=== PATIENT | female | born 1950 | race Hispanic/Latino ===

== ENCOUNTER 2017-07-25 09:04 | Observation (INO) | payer MEDICARE ==
--- NOTE | 2017-07-24 16:06 | Diagnostic Imaging Report ---
PROCEDURE: Frontal and lateral views of the chest. COMPARISON: None. INDICATIONS: PRE-OPERATIVE CHEST X-RAY FOR KNEE SURGERY FINDINGS: Lines/tubes: None. Lungs: Lungs are mildly hyperinflated. Mild central pulmonary venous congestion. Pleura: There is no pleural effusion or pneumothorax. Heart and mediastinum: The heart and the mediastinum are normal. Atherosclerotic calcifications of the aorta. Bones: No acute bony abnormality. Severe deformities of bilateral glenohumeral joints. Moderate severe degenerative changes in the right acromioclavicular joint. Chronic widening of the left acromioclavicular joint. IMPRESSION: 1. Mild central pulmonary venous congestion. Otherwise unremarkable chest. 2. Severe degenerative changes in bilateral glenohumeral joints. Dictated by: Devendra Zuleta M.D. on 07/24/2017 at 16:06 Electronically approved by: Devendra Zuleta M.D. on 07/24/2017 at 16:06
[~2017-07-25] VITALS: Ht 160 cm; Wt 58.5 kg
[~2017-07-25 09:04] MED LIST: ALEVE220 M1 PO; BACITRACIN 50,000 UNIT VIAL ONE; CEFAZOLIN SOD 2 GM/D5W 50ML 50 ML IV ONE; CELECOXIB 200 MG CAP ONE; DEXAMETHASONE SOD PHOS 10 MG/1 ML VIAL ONE; GABAPENTIN 300 MG CAP ONE; MUPIROCIN 2% OINT 22 GM TUBE ONE; RA MED; TRANEXAMIC ACID 1,000 MG/10 ML ML ONE; TYLENOL PO; [UNRECOGNIZED DRUG - OTHER]
--- OUTSIDE RECORDS SUMMARY | 2017-07-25 09:07 | XMS REPORT ---
[facility] Address Unknown Phone Unavailable Care Team Providers Care Health Care Analyst Name Role Phone NORMA POPE Unavailable Unavailable Problems This patient has no known problems. Allergies, Adverse Reactions, Alerts This patient has no known allergies or adverse reactions. Medications This patient has no known medications. Results Test Description Test Time Test Comments Text Results Atomic Results Result Comments CHEST 2 VIEWS [place] [address] Patient Name: LISA LAMAR MR #: [id number] : 1950 Age/Sex: 66/F Req # : [id number] Adm Physician: Ordered by: CRISELDA NAPOLES MD Report #: [id number] Location: OR Room/Bed: Procedure: [id number] DX/CHEST 2 VIEWS Exam Date: Exam Time: REPORT STATUS: Signed PROCEDURE: Frontal and lateral views of the chest. COMPARISON: None. INDICATIONS: PRE-OPERATIVE CHEST X-RAY FOR KNEE SURGERY FINDINGS: Lines/tubes: None. Lungs: Lungs are mildly hyperinflated. Mild central pulmonary venous congestion. Pleura: There is no pleural effusion or pneumothorax. Heart and mediastinum: The heart and the mediastinum are normal. Atherosclerotic calcifications of the aorta. Bones: No acute bony abnormality. Severe deformities of bilateral glenohumeral joints. Moderate severe degenerative changes in the right acromioclavicular joint. Chronic widening of the left acromioclavicular joint. IMPRESSION: 1. Mild central pulmonary venous congestion. Otherwise unremarkable chest. 2. Severe degenerative changes in bilateral glenohumeral joints. Dictated by: Ludy Zuleta M.D. on 07/24/2017 at 16:06 Electronically approved by: Ludy Zuleta M.D. on 07/24/2017 at 16:06 Dictated By: LUDY ZULETA MD [id number] COPY TO: CRISELDA NAPOLES MD
[2017-07-25] MEDS ORDERED: SODIUM CHLORIDE 0.9% 1000ML 1,000 ML IV SCH (10:47)
[2017-07-25] MEDS ORDERED: HYDROCODONE/APAP 7.5MG-325MG 1 EA TAB PO PRN (11:00)
[2017-07-25] MEDS ORDERED: HYDROCODONE/APAP 5MG-325MG TAB PO PRN (11:00)
[2017-07-25] MEDS ORDERED: PROMETHAZINE HCL (IM) 25 MG/ML VIAL INJ PRN (11:00)
[2017-07-25] MEDS ORDERED: KETOROLAC TROMETHAMINE 30 MG/ML VIAL IV PRN (11:00)
[2017-07-25] MEDS ORDERED: ZOLPIDEM TARTRATE 5 MG TAB PO PRN (11:00)
[2017-07-25] MEDS ORDERED: ONDANSETRON HCL INJ 2 MG/ML VIAL IV PRN (11:00)
[2017-07-25] MEDS ORDERED: DIPHENHYDRAMINE HCL INJ 50 MG/ML VIAL IM/IV PRN (11:00)
[2017-07-25] MEDS ORDERED: ACETAMINOPHEN 650 MG SUPP PR PRN (11:00)
[2017-07-25] MEDS ORDERED: DOCUSATE SODIUM 100 MG CAP PO PRN (11:00)
--- NOTE | 2017-07-25 11:27 | Operative Report ---
DATE OF PROCEDURE: July 25, 2017 EQUIPMENT CLEANER AND TESTER: Freddie Lawrence PA-C The patient was brought to the operating room for induction of anesthesia. Throughout this case, my PA's assistance was necessary for retraction of soft tissue and positioning of the extremity. This allows for efficient and technically successful execution of the operation and is considered medically necessary. PREOPERATIVE DIAGNOSIS: Severe right knee rheumatoid arthritis. POSTOPERATIVE DIAGNOSIS: Severe right knee rheumatoid arthritis. PROCEDURE: Right total knee arthroplasty with total synovectomy and bone grafting of subchondral cysts. INDICATIONS: The patient is a 66-year-old lady with severe erosive rheumatoid arthritis of her right knee. This has been untreated for years. She now has severe quadriceps atrophy and very limited function and mobility as a result of her right knee. The findings and options have been discussed. We plan on a right total knee arthroplasty. The risks and benefits were explained to the patient and her family. They state they understand and wish to proceed. DESCRIPTION OF PROCEDURE: The patient was brought to the operating room and placed under general anesthetic. She received a regional block, tranexamic acid and prophylactic antibiotics in the holding area. Her right lower extremity was prepped and draped in a sterile manner. A preoperative time out was performed. The extremity was exsanguinated and a proximal tourniquet was inflated to 300 mmHg. An anterior approach with a medial parapatellar arthrotomy was performed. A large inflammatory synovitis was noted. A total synovectomy was performed throughout the case. Initial attention was directed towards the suprapatellar pouch, medial and lateral gutters. Soft-tissue releases were performed to bring the knee up into flexion with the patella everted. Limited dissection was performed in the medial or lateral aspect as well as elevation of the patellar tendon. Noted erosive arthritis was encountered of the lateral tibial plateau and femoral condyle. There was really no remnant of any meniscal tissue. An extramedullary cutting guide was used to resect the proximal tibia. A [employer] Claudine II posterior stabilized knee system was used throughout the case. The tibial baseplate was a size #4. The central fin punch was impacted, and attention was directed towards the distal femur. An intramedullary cutting guide was used to resect the distal femur in 6 degrees of valgus and rotation referenced off of a combination of landmarks including [place] line, the epicondylar axis and the posterior condyles. The femoral component was also a size #4. The notch cut was made. Trial reduction was performed. An 11-mm posted implant provided optimal soft-tissue balancing in full extension and 90 degrees of flexion. The posterior compartment was cleared of all inflamed synovium as well. The patella was resurfaced with a 29-mm x 9-mm patellar button. The thickness was checked before and after and was right around 22 to 23 mm. Patellar tracking was concentric. The trial implants were all removed. Subchondral cysts in the distal femur and proximal tibia were carefully debrided and packed with autologous bone graft. I did not have enough autologous bone graft to pack every one of the cysts because the excised bone was also of poor quality and cystic. The knee was thoroughly irrigated with a shower-tip pulsatile lavage. A 100 mL premixed pericapsular injection was placed around the soft tissue. The components were cemented into place using a single mix of [place] cement preloaded with antibiotics. Care was taken to carefully remove all extravasated cement. The wound was extensively irrigated while the cement cured. The arthrotomy was then closed with interrupted #1 Ethibond. The knee was put through flexion and extension after each suture to ensure a secure closure. The skin was very carefully closed with subcuticular Vicryl and elizabeth. A sterile bandage was applied. The patient was extubated and transported to the recovery room in stable condition. Blood loss was minimal. All needle and sponge counts were correct. Job#: [id number]
[2017-07-25] MEDS ORDERED: ROPIVACAINE 246.25 MG, EPINEPHRINE HCL 1:1000 0.5 MG, CLONIDINE HCL 0.08 MG, KETOROLAC ... INJ ONE ×5 (11:30)
[2017-07-25] MEDS: ACETAMINOPHEN 1000 MG/100 ML IV SCH ×2 (12:00→18:33)
--- NOTE | 2017-07-25 12:04 | Diagnostic Imaging Report ---
PROCEDURE:KNEE RIGHT 1-2 VIEWS TECHNIQUE:Portable AP and crosstable lateral views right knee INDICATION:Postoperative evaluation COMPARISON:None. FINDINGS: See conclusion. CONCLUSION: 1. Total right knee arthroplasty intact and in anatomic alignment. 2. Expected regional postoperative changes including soft tissue swelling, joint gas and tissue elizabeth. 3. No acute abnormality. Dictated by: Arthur Ceja M.D. on 07/25/2017 at 12:04 Electronically approved by: Arthur Ceja M.D. on 07/25/2017 at 12:04
[2017-07-25] MEDS ORDERED: CEFAZOLIN SOD 1 GM/NS 50ML 50 ML IV SCH (14:00)
[2017-07-25 16:41] VITALS: BP 101/53
[2017-07-25] MEDS ORDERED: CELECOXIB 100 MG CAP PO SCH (17:00)
[2017-07-25] MEDS ORDERED: ONDANSETRON HCL INJ 2 MG/ML VIAL ONE (17:27)
[2017-07-25] MEDS ORDERED: PROPOFOL IV EMULSION 10 MG/ML 20 ML VIAL ONE (17:27)
[2017-07-25] MEDS ORDERED: LIDOCAINE HCL 2% LOCAL INJ 5 ML SDV VIAL INJ ONE (17:27)
[2017-07-25] MEDS ORDERED: DESFLURANE 240 ML BTL INH ONE (17:27)
[2017-07-25] MEDS ORDERED: EPHEDRINE SULFATE INJ 50 MG/10 ML SYR ONE (17:27)
[2017-07-25] MEDS ORDERED: DEXAMETHASONE SOD PHOS INJ 4 MG/ML VIAL ONE (17:27)
[2017-07-25 17:35] VITALS: BP 101/53
[2017-07-25] MEDS: CEFAZOLIN SOD 1 GM VIAL IV SCH (18:32)
[2017-07-25] MEDS: CELECOXIB 200 MG CAP PO SCH (18:32)
[2017-07-25] MEDS: ASPIRIN 325 MG TAB PO SCH (18:32)
[2017-07-25] MEDS ORDERED: LIDOCAINE 2% /EPINEPHRINE 20 ML SDV INJ ONE (18:36)
[2017-07-25] MEDS ORDERED: ROPIVACAINE 0.5% 5 MG/ML 30 ML SDV ONE (18:36)
[2017-07-25] MEDS ORDERED: FENTANYL CITRATE/PF 100MCG/2 ML INJ ONE (18:42)
[2017-07-25] MEDS ORDERED: MIDAZOLAM HCL 2 MG/2 ML VIAL ONE (18:42)
[2017-07-25 20:00] VITALS: BP 99/55
[2017-07-26] VITALS: BP 101/57
[2017-07-26] MEDS: ACETAMINOPHEN 1000 MG/100 ML IV SCH ×2 (02:20→06:00)
[2017-07-26] MEDS: CEFAZOLIN SOD 1 GM VIAL IV SCH ×2 (02:20→09:32)
[2017-07-26 04:00] VITALS: BP 97/55
[2017-07-26 06:55] LABS: HEMATOCRIT 26.8 % (34.2-44.1); HEMOGLOBIN 8.8 g/dL (12.0-16.0)
[2017-07-26 08:21] VITALS: BP 112/57
[2017-07-26] MEDS ORDERED: ASPIRIN325 MG PO (08:49)
[2017-07-26] MEDS: ASPIRIN 325 MG TAB PO SCH (09:32)
[2017-07-26] MEDS: CELECOXIB 200 MG CAP PO SCH (09:32)
[2017-07-26] MEDS ORDERED: ACETAMINOPHEN 1000 MG/100 ML IV PRN (11:00)
[2017-07-26 11:52] VITALS: BP 112/57
[2017-07-26 12:30] VITALS: BP 112/57
== END 2017-07-26 15:00 | disposition home health service (06) ==
LOC: OR 09:04 → INTOOBSV 14:16 → MED/SURG 14:16
PROVIDERS: ADMIT Specialist; ATTEND Specialist
DX: M06.861 Other specified rheumatoid arthritis, right knee (principal); D64.9 Anemia, unspecified
CPT/HCPCS: 27334; 27447; 36415; 71046; 73560; 85014; 85018; 86850; 86900; 86920; 88305; 93005; 97110 ×2; 97116; 97139; 97161; C1713; G0378 ×2; G8978; G8979; J0171; J0690 ×2; J1100 ×2; J1885; J2001 ×2; J2250; J2405; J2795

== ENCOUNTER → 2020-06-01 | Outpatient (CLI) | payer MEDICARE ==
[~2020-06-01] MED LIST changes: +ASPIRIN325 MG PO; -BACITRACIN 50,000 UNIT VIAL ONE; -CEFAZOLIN SOD 2 GM/D5W 50ML 50 ML IV ONE; -CELECOXIB 200 MG CAP ONE; -DEXAMETHASONE SOD PHOS 10 MG/1 ML VIAL ONE; -GABAPENTIN 300 MG CAP ONE; +GADOBENATE DIMEGLUMINE 1 ML IV ONE; -MUPIROCIN 2% OINT 22 GM TUBE ONE; -TRANEXAMIC ACID 1,000 MG/10 ML ML ONE
[2020-06-01 13:53] LABS: CREATININE, SERUM 0.78 mg/dL (0.57-1.11)
== END ==
LOC: MRI 12:51
PROVIDERS: ATTEND Podiatrist Foot & Ankle Surgery
DX: R22.42 Localized swelling, mass and lump, left lower limb (principal)
CPT/HCPCS: 36415; 82565; 84520